=== PATIENT | male | born 1960 | race Caucasian/White ===

== ENCOUNTER 2018-11-18 01:46 | Emergency (ER) | payer OTHER ==
[~2018-11-18] VITALS: Ht 180.3 cm; Wt 118.8 kg
[2018-11-18] MEDS ORDERED: LISINOPRIL10 MG PO (02:04)
[2018-11-18] MEDS ORDERED: METOPROLOL SUCC25 MG PO (02:04)
--- OUTSIDE RECORDS SUMMARY | 2018-11-18 02:52 | XMS ---
PreManage Notification: JUSTIN GOETZ Security Radiological Equipment Specialist Events No recent Security Events currently on file CRITERIA MET - [facility] Care Guidelines - PDMP CARE PROVIDERS There are no care providers on record at this time. Guidelines Source: [facility] Guidelines Date: 06/10/2017 Care Recommendation: Care Recommendation: Reason for establishing care guidelines: this patient has been identified as having at least 5 Emergency Department visits in [facility] in the 12 months immediately preceding the date these guidelines were entered. This care plan reflects only preliminary care guidelines. Providers should exercise clinical judgement when providing care. Contact your emergency department Glass Science Engineer for further assistance. Primary Care Physician:Andres. Please contact pts PCP and/or specialty providers for additional information on chronic conditions. Past Medical History: Hypertension Past Surgical History: Arm Surgery, Tonsillectomy Problem List: Educate patient regarding the proper use of the Emergency Room. Redirect patient to him/her PCP for care that does not require the use of the Emergency Department. [facility] if further intervention is needed in the care of this patient. It may be appropriate for this patient to seek care at an Urgent Care Center instead of the Emergency Room, please offer this alternate plan to the patient and provide list of Urgent Care Clinics. Substance Abuse: None Mental Health: None Pain/Opioid Agreement: Please use the [facility] Prescription Monitoring Program for specifics related to pts use of narcotics medications. https://secureaccess.[place].gov E.D. VISIT COUNT (12 MO.) 5 Tan Morales 1 [facility] 2 Alejandra Justina 1 [facility] TOTAL 9 NOTE: Visits indicate total known visits. ED/UCC VISIT TRACKING (12 MO.) 11/18/2018 01:[address] [facility] [place] TYPE: Emergency COMPLAINT: - BACK PAIN/POST WC CLAIM 10/01/2018 00:35 Tan MAGANA TYPE: Emergency COMPLAINT: - BACK PAIN - LOW BACK PAIN DIAGNOSES: 0. Low back pain 1. Lumbago with sciatica, unspecified side 3. Pure hypercholesterolemia, unspecified 4. Essential (primary) hypertension 5. Other intermediate (current) drug therapy 05/27/2018 16:34 Tan MAGANA TYPE: Emergency COMPLAINT: - POST OP PAIN - DORSALGIA UNSPECIFIED DIAGNOSES: 0. Dorsalgia, unspecified 1. Other acute postprocedural pain 3. Essential (primary) hypertension 4. PURE HYPERCHOLESTEROLEMIA UNSPEC 5. Acquired absence of other organs 6. Other professor of languages (current) drug therapy 12/27/2017 00:15 Alejandra MAGANA TYPE: Emergency COMPLAINT: - BULL 12/26/2017 01:13 Alejandra MAGANA TYPE: Emergency COMPLAINT: - BULL 12/23/2017 00:36 Tan MAGANA TYPE: Emergency COMPLAINT: - HEADACHE, VOMITING, NAUSEA - HEADACHE - VOMITING UNSPECIFIED DIAGNOSES: 0. Headache 1. Essential (primary) hypertension 4. Hypokalemia 5. PURE HYPERCHOLESTEROLEMIA UNSPEC 12/22/2017 [facility] [place] [facility] DIAGNOSES: - N/V - Emesis - Nausea with vomiting, unspecified - Nausea 12[facility]12[facility]2017 [facility] [facility] [address] COMPLAINT: - HEADACHE / UPPER LT BACK PAIN - VOMITING UNSPECIFIED DIAGNOSES: 0. Vomiting, unspecified 1. Vomiting, unspecified 3. PURE HYPERCHOLESTEROLEMIA UNSPEC 4. Essential (primary) hypertension 11/22/2017 [facility]:[address] [facility] COMPLAINT: - NAUSEA - DIARRHEA UNSPECIFIED - NAUSEA WITH VOMITING UNSPECIFIED DIAGNOSES: 0. Nausea with vomiting, unspecified 1. Noninfective gastroenteritis and colitis, unspecified 4. PURE HYPERCHOLESTEROLEMIA UNSPEC 5. Essential (primary) hypertension 6. Other intermediate (current) drug therapy INPATIENT VISIT TRACKING (12 MO.) 06/12/2018 16:49 Alejandra MAGANA TYPE: Medical Surgical COMPLAINT: - EPIDURAL HEMATOMA 05/27/2018 23:30 Alejandra MAGANA TYPE: Inpatient COMPLAINT: - INTRACTABLE PAIN SP DISCECTOMY 05/24/2018 14:00 Alejandra MAGANA TYPE: Inpatient COMPLAINT: - LUMBAR STENOSIS WITH SPONDYLOSIS AND RADICULOPATHY [email or web address]
== END 2018-11-18 02:40 | disposition home or self-care (01) ==
LOC: ED 01:46
DX: G89.29 Other chronic pain (principal); M54.5 Low back pain; Z79.899 Other long term (current) drug therapy
CPT/HCPCS: 96372; 99283-25; J1885